=== PATIENT | female | born 1945 | race Caucasian/White ===

== ENCOUNTER → 2019-09-16 | Outpatient (CLI) | payer MEDICARE, OTHER ==
--- NOTE | 2019-09-16 16:22 | Diagnostic Imaging Report ---
PROCEDURE: MRI lumbar spine. TECHNIQUE: Multiplanar, multisequence MRI of the lumbar spine was performed without contrast. INDICATION: Low back pain. No known injury. COMPARISON: None. FINDINGS: 5 lumbar type vertebral bodies are visualized with the last well-formed disc space designated L5-S1. No acute fracture or dislocation is seen in the lumbar spine. There is right convexity curvature of the lumbar spine centered at the L4 level. Vertebral heights and disc spaces are well-maintained. The bone marrow signal is normal. The conus terminates at the L1 level. No masses are seen associated with the conus or nerve roots of the cauda equina. Multilevel degenerative changes are seen in the lumbar spine with disc bulges, facet hypertrophy, and buckling of the ligamentum flavum. T12-L1: Broad-based disc bulge, facet hypertrophy, and buckling of ligamentum flavum result in no significant spinal canal or foraminal stenosis. L1-L2: Broad-based disc bulge, facet hypertrophy, and buckling of ligamentum flavum result in no significant spinal canal narrowing and moderate right and mild left foraminal stenosis. L2-L3: Disc desiccation with broad-based disc bulge, facet hypertrophy, and buckling of ligamentum flavum result in mild spinal canal narrowing and [id number]-cfpboxvx bilateral foraminal stenosis. L3-L4: Disc desiccation with disc osteophyte complex, facet hypertrophy, and buckling of ligamentum flavum result in no significant spinal canal narrowing and zqvabjmt-ec-zgswrl left and mild right foraminal stenosis. L4-L5: Disc desiccation with broad-based disc bulge, facet hypertrophy, and buckling of the ligamentum flavum results in no significant spinal canal narrowing and sgfb-qm-gekidotd right and moderate left foraminal stenosis. L5-S1: Broad-based disc bulge with superimposed right paracentral disc extrusion with cranial migration of extruded disc contents, facet hypertrophy, and buckling of the ligamentum flavum results in severe right lateral recess stenosis, no significant spinal canal narrowing and wxlwfrxu-hz-mtldom right and moderate left foraminal stenosis. Paravertebral soft tissues are unremarkable. IMPRESSION: 1. No acute fracture or dislocation in the lumbar spine. 2. Multilevel degenerative changes in the lumbar spine, greatest at L5-S1 with a right paracentral disc extrusion resulting in severe right lateral recess stenosis and ekfgvhgj-wo-gqooej right and moderate left foraminal stenosis. Dictated by: Dictated on workstation # [id number]
== END ==
LOC: RAD 15:33
PROVIDERS: ATTEND Orthopaedic Surgery
DX: M48.07 Spinal stenosis, lumbosacral region (principal); M47.817 Spondylosis without myelopathy or radiculopathy, lumbosacral region
CPT/HCPCS: 72148

== ENCOUNTER 2020-09-11 12:31 | Emergency (ER) | payer MEDICARE ==
[~2020-09-11] VITALS: Ht 175.3 cm; Wt 81.6 kg
--- NOTE | 2020-09-11 12:44 | ED Dyspnea ---
General Stated Complaint: SOB History of Present Illness Date Seen by Provider: Sep 11, 2020 Time Seen by Provider: 12:39 Initial Comments 75-year-old female presents with some mild chest discomfort and shortness of breath. Patient reports that she was diagnosed with COVID 2 days ago. That she's been feeling fine up until this morning. This morning she had just some mild feeling of shortness of breath and then a little bit of discomfort in her chest is now resolved. Patient reports that she had a little flulike symptoms this morning but otherwise all her symptoms a been a very minimal to none. Patient came in today because she just wanted any further evaluated. Upon arrival patient is oxygen saturation is in the upper 90s. She does not have any shortness of breath at this time. Patient otherwise has no complaints. Allergies and Home Medications Patient Home Medication List Home Medication List Reviewed: Yes Review of Systems Review of Systems Constitutional: No chills, No fever Respiratory: No cough, No dyspnea on exertion, No orthopnea; short of breath Cardiovascular: chest pain; No edema, No palpitations Gastrointestinal: No abdominal pain, No diarrhea, No nausea, No vomiting Genitourinary: no symptoms reported Musculoskeletal: no symptoms reported Skin: no symptoms reported Psychiatric/Neurological: No Symptoms Reported Endocrine: No Symptoms Reported Hematologic/Lymphatic: No Symptoms Reported Physical Exam Vital Signs Vital Signs - First Documented 09/11/20 12:35 Temp 35.1 Pulse 76 Resp 17 B/P (MAP) 179/78 (111) Pulse Ox 97 O2 Delivery Room Air Capillary Refill : Height, Weight, BMI Height: '" Weight: lbs. oz. 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 Norm as Tested Skin: Normal Color, Warm/Dry Progress/Results/Core Measures Results/Orders Lab Results Laboratory Tests Test 09/11/20 12:25 09/11/20 12:55 Range/Units White Blood Count 10.0 4.3-11.0 10^3/uL Red Blood Count 4.20 L 4.35-5.85 10^6/uL Hemoglobin 12.9 11.5-16.0 G/DL Hematocrit 37 35-52 % Mean Corpuscular Volume 89 80-99 FL Mean Corpuscular Hemoglobin 31 25-34 PG Mean Corpuscular Hemoglobin Concent 35 32-36 G/DL Red Cell Distribution Width 14.1 10.0-14.5 % Platelet Count 292 130-400 10^3/uL Mean Platelet Volume 10.5 H 7.4-10.4 FL Immature Granulocyte % (Auto) 0 % Neutrophils (%) (Auto) 72 42-75 % Lymphocytes (%) (Auto) 20 12-44 % Monocytes (%) (Auto) 7 0-12 % Eosinophils (%) (Auto) 0 0-10 % Basophils (%) (Auto) 1 0-10 % Neutrophils # (Auto) 7.2 1.8-7.8 X 10^3 Lymphocytes # (Auto) 2.0 1.0-4.0 X 10^3 Monocytes # (Auto) 0.7 0.0-1.0 X 10^3 Eosinophils # (Auto) 0.0 0.0-0.3 10^3/uL Basophils # (Auto) 0.1 0.0-0.1 10^3/uL Immature Granulocyte # (Auto) 0.0 0.0-0.1 10^3/uL Sodium Level 140 135-145 MMOL/L Potassium Level 3.9 3.6-5.0 MMOL/L Chloride Level 105 98-107 MMOL/L Carbon Dioxide Level 23 21-32 MMOL/L Anion Gap 12 5-14 MMOL/L Blood Urea Nitrogen 14 7-18 MG/DL Creatinine 0.75 0.60-1.30 MG/DL Estimat Glomerular Filtration Rate > 60 BUN/Creatinine Ratio 19 Glucose Level 132 H 70-105 MG/DL Calcium Level 8.7 8.5-10.1 MG/DL Corrected Calcium 8.5 8.5-10.1 MG/DL Total Bilirubin 0.6 0.1-1.0 MG/DL Aspartate Amino Transf (AST/SGOT) 17 5-34 U/L Alanine Aminotransferase (ALT/SGPT) 15 0-55 U/L Alkaline Phosphatase 55 40-136 U/L Troponin I < 0.30 <0.30 NG/ML C-Reactive Protein 2.28 H <0.50 MG/DL Total Protein 6.6 6.4-8.2 GM/DL Albumin 4.2 3.2-4.5 GM/DL My Orders Orders - NATALIE MICHAEL DO Cbc With Automated Diff (09/11/20 12:49) Comprehensive Metabolic Panel (09/11/20 12:49) Crp Fs (09/11/20 12:49) Troponin I Fs (09/11/20 12:49) Chest 1 View Ap/Pa Only (09/11/20 12:49) Ekg Tracing (09/11/20 12:49) Vital Signs/I&O 09/11/20 12:35 Temp 35.1 Pulse 76 Resp 17 B/P (MAP) 179/78 (111) Pulse Ox 97 O2 Delivery Room Air Progress Progress Note : Time: 14:14 Progress Note Patient was asymptomatic throughout her ER stay. She does have known COVID with O2 saturations in the upper 90s. Patient stable and will be discharged home Initial ECG Impression Date: Sep 11, 2020 Initial ECG Impression Time: 12:49 Initial ECG Rate: 72 Initial ECG Rhythm: Normal Sinus Initial ECG Intervals: QT (504) Initial ECG Impression: Nonspecific Changes Comment no acute changes, slight prolonged qt, non specific changes Diagnostic Imaging Diagonstic Imaging: Xray Plain Films/CT/US/NM/MRI: chest Comments [facility], [place] NAME: KELSEY ELIZONDO Hattie [facility] REC#: [id number] PT STATUS: REG ER : 1945 PHYSICIAN: NATALIE MICHAEL DO ADMIT DATE: 09/11/20/ER FS Draft Date of Exam:09/11/20 CHEST 1 VIEW AP/PA ONLY INDICATION: Shortness of breath. TECHNIQUE: Single-view chest 12:51 p.m. CORRELATION STUDY: None. FINDINGS: Heart size and mediastinal configuration are relatively stable. Mildly prominent interstitial markings throughout both lung moya. However, no consolidating infiltrates. Asymmetrically elevated right diaphragm. There may be trace pleural effusion versus pleural thickening in the left costophrenic angle. IMPRESSION: 1. Negative for acute abnormality of the chest. Likely chronic change about the lung parenchyma. Reviewed: Reviewed by Me, Reviewed/Discussed Departure Impression Primary Impression: COVID-19 Disposition: 01 HOME, SELF-CARE Condition: Stable Departure-Patient Inst. Referrals: NO,LOCAL PHYSICIAN (PCP/Family) Primary Care Physician Patient Instructions: Coronavirus Disease 2019 (COVID-19) Overview Add. Discharge Instructions: Please start vitamin C 500 mg twice a day, zinc 100 mg daily, melatonin 6-12 mg at night, vitamin D 4000 units a day, aspirin 325 mg daily, Pepcid 40 mg twice daily Follow-up with your primary care provider as needed Return to the ER if symptoms significantly worsen ANTALIE MICHAEL DO Sep 11, 2020 12:44
[2020-09-11 13:07] LABS: HEMATOCRIT 37 % (35-52); HEMOGLOBIN 12.9 G/DL (11.5-16.0); MEAN CORPUSCULAR HEMOGLOBIN 31 PG (25-34); MEAN CORPUSCULAR HGB CONC 35 G/DL (32-36); MEAN CORPUSCULAR VOLUME 89 FL (80-99); MEAN PLATELET VOLUME 10.5 FL (7.4-10.4); PLATELET COUNT 292 10^3/uL (130-400)
[2020-09-11 13:08] LABS: BASOPHILS # (AUTO) 0.1 10^3/uL (0.0-0.1); BASOPHILS % (AUTO) 1 % (0-10); EOSINOPHILS % (AUTO) 0 % (0-10); LYMPHOCYTES % (AUTO) 20 % (12-44); MONOCYTES # (AUTO) 0.7 X 10^3 (0.0-1.0); MONOCYTES % (AUTO) 7 % (0-12); NEUTROPHILS # (AUTO) 7.2 X 10^3 (1.8-7.8); NEUTROPHILS % (AUTO) 72 % (42-75)
--- NOTE | 2020-09-11 13:19 | Diagnostic Imaging Report ---
INDICATION: Shortness of breath. TECHNIQUE: Single-view chest 12:51 p.m. CORRELATION STUDY: None. FINDINGS: Heart size and mediastinal configuration are relatively stable. Mildly prominent interstitial markings throughout both lung moya. However, no consolidating infiltrates. Asymmetrically elevated right diaphragm. There may be trace pleural effusion versus pleural thickening in the left costophrenic angle. IMPRESSION: 1. Negative for acute abnormality of the chest. Likely chronic change about the lung parenchyma. Dictated by: Dictated on workstation # [id number]
[2020-09-11 14:04] LABS: ALANINE AMINOTRANSFERASE 15 U/L (0-55); ALBUMIN 4.2 GM/DL (3.2-4.5); ALKALINE PHOSPHATASE 55 U/L (40-136); BILIRUBIN,TOTAL 0.6 MG/DL (0.1-1.0); BUN/CREATININE RATIO 19; CALCIUM 8.7 MG/DL (8.5-10.1); CARBON DIOXIDE 23 MMOL/L (21-32); CHLORIDE 105 MMOL/L (98-107); CREATININE SERUM 0.75 MG/DL (0.60-1.30); GFR ESTIMATED > 60; GLUCOSE 132 MG/DL (70-105); POTASSIUM 3.9 MMOL/L (3.6-5.0); SODIUM 140 MMOL/L (135-145); TOTAL PROTEIN 6.6 GM/DL (6.4-8.2)
[2020-09-11 14:33] VITALS: BP 145/85
== END 2020-09-11 14:28 | disposition home or self-care (01) ==
LOC: EDUNIT# 12:31 → ER FS 12:33
DX: U07.1 COVID-19 (principal)
CPT/HCPCS: 36415; 71045; 80053; 84484; 85025; 86141

== ENCOUNTER → 2020-09-14 | Outpatient (CLI) | payer MEDICARE ==
[~2020-09-14] VITALS: Ht 175.3 cm; Wt 81.8 kg
[~2020-09-14] MED LIST: BAMLANIVIMAB 700 MG in NS 200 ML IV ONE; EPINEPHrine INJECTION 1 MG/ML AMP IM PRN; diphenhydrAMINE 50 MG/ML INJ (BENADRYL) IV PRN
[2020-09-14 08:37] VITALS: BP 158/68
[2020-09-14 10:13] VITALS: BP 161/93
== END ==
LOC: INFUSION 08:01
PROVIDERS: ATTEND Student in an Organized Health Care Education/Training Program
DX: U07.1 COVID-19 (principal)

== ENCOUNTER 2020-11-29 15:37 | Emergency (ER) | payer MEDICARE, OTHER ==
[~2020-11-29] VITALS: Ht 177 cm; Wt 82.0 kg
[2020-11-29 15:43] VITALS: BP 191/86
--- NOTE | 2020-11-29 16:01 | ED Lower Extremity ---
General Chief Complaint: Lower Extremity Stated Complaint: FALL,LT FOOT PAIN Source: patient History of Present Illness Date Seen by Provider: Nov 29, 2020 Time Seen by Provider: 15:38 Initial Comments 75 yo female presents with pain, bruising and swelling to left foot after she had fallen through some rotten decking. 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 Her right foot and leg fell through and her left foot and toes bent back where she had to push them back into position. She had this happen just prior to coming to the ED. She had taken 400 mg of Ibuprofen just prior to going to work at the house. She has no head injury and no LOC. She denies other i njuries. She is able to bear weight and walk but it is painful. She rates her pain 6 to 7 out of 10. Onset: just prior to arrival Severity: severe Pain/Injury Location: left foot Method of Injury: fell Modifying Factors: Improves With Immobilization; Worse With Movement; Improves With Rest Allergies and Home Medications Allergies Coded Allergies: No Known Drug Allergies (Unverified , 09/11/20) Home Medications Hydrocodone/Acetaminophen 1 Each Tablet, 1 TAB PO Q6H PRN for PAIN-SEVERE (8-10) Prescribed by: REJI MANLEY on 11/29/20 1640 Patient Home Medication List Home Medication List Reviewed: Yes Review of Systems Constitutional: No chills, No fever EENTM: no symptoms reported Respiratory: no symptoms reported Cardiovascular: no symptoms reported Gastrointestinal: no symptoms reported Genitourinary: no symptoms reported Musculoskeletal: see HPI, other (pain in left foot at MTP joints 2-3) Skin: change in color (bruising to left foot) Psychiatric/Neurological: Denies Headache, Denies Numbness, Denies Paresthesia Past Yiapyhs-Pyjloc-Lmmvhg Hx Past Med/Social Hx: Reviewed Nursing Past Med/Soc Hx Patient Social History 2nd Hand Smoke Exposure: No Recent Hopitalizations: No Seasonal Allergies Seasonal Allergies: No Past Medical History Surgeries: Yes Adenoidectomy, Appendectomy, Hysterectomy, Tonsillectomy, Tubal Ligation Respiratory: No Cardiac: No Neurological: No Genitourinary: No Gastrointestinal: No Musculoskeletal: No Endocrine: No HEENT: No Cancer: No Psychosocial: Yes Depression Integumentary: No Blood Disorders: No Physical Exam Vital Signs Vital Signs - First Documented 11/29/20 15:43 Temp 37.2 Pulse 85 Resp 20 B/P (MAP) 191/86 (121) Pulse Ox 97 Capillary Refill : Height, Weight, BMI Height: '" Weight: lbs. oz. 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, no motor/sensory deficits, alert, normal mood/affect, oriented x 3 Skin: warm/dry, ecchymosis (top of left foot 2-3 MTP joints) Progress/Results/Core Measures Results/Orders My Orders Orders - REJI MANLEY MD Foot 3 View Left (11/29/20 15:55) Ice: Apply To Affected Area (11/29/20 15:55) Elevate Affected Extremity (11/29/20 15:55) Crutches (11/29/20 16:35) Ed Ortho/Other Supplies Order (11/29/20 16:35) Orthopedic Equiment (11/29/20 16:35) Vital Signs/I&O 11/29/20 15:43 Temp 37.2 Pulse 85 Resp 20 B/P (MAP) 191/86 (121) Pulse Ox 97 Progress Progress Note #1: Progress Note since took 400 mg Ibuprofen shortly before the accident will start with ice and elevation for pain and obtain imaging to look for fracture, dislocation Progress Note #2: Progress Note X-rays demonstrate nondisplaced fracture of the distal portion of the second metatarsal. This does correlate with where she has pain, swelling and bruising. Counseled patient on treatment with nonweightbearing, crutches, Ortho shoe. Advised since this was work comp that she would need to follow-up with the work comp clinic or orthopedics. Depending on her HR her and employer she would need to follow-up as they directed. Given information for Dr. Hunter and Elliott Riggs. Patient refused crutches stating that she felt like she would hurt herself more if she tried to use the crutches. She did take the Ortho shoe. Advised on rest, ice, elevation. Prescribed a few pain pills as well as counseled that if just ibuprofen and Tylenol control her pain she can just use that. Advised to be off work until she could be cleared by clinic or orthopedics. Diagnostic Imaging Diagonstic Imaging: Xray Plain Films/CT/US/NM/MRI: other (foot) Comments NAME: KELSEY ELIZONDO [facility] REC#: [id number] PT STATUS: REG ER : 1945 PHYSICIAN: REJI MANLEY MD ADMIT DATE: 11/29/20/ER FS Signed Date of Exam:11/29/20 FOOT 3 VIEW LEFT INDICATION: Left foot pain AP, oblique, lateral views left foot are obtained There is prominent degenerative change of 1st MTP joint. There is diffuse degenerative change throughout the interphalangeal joints. There is some plantar calcaneal spurring There is some cortical lucency and irregularity in the distal aspect of the 2nd metatarsal, it is not clear if this is chronic or acute. Correlate for point tenderness in this area. IMPRESSION: Underlying degenerative findings. Questionable cortical lucency in the 2nd metatarsal distally, this may represent nondisplaced fracture versus chronic change. Correlate for point tenderness in this area. Consider followup as warranted. Dictated by: Dictated on workstation # [id number] Dict: 11/29/20 1609 Trans: 11/29/20 1619 [facility] [id number] Interpreted by: MUSTAPHA ORTEGA MD Electronically signed by: MUSTAPHA ORTEGA MD 11/29/20 1619 Departure Impression Primary Impression: Nondisplaced fracture of second metatarsal bone, left foot, initial encounter for closed fracture Additional Impressions: Left foot pain Fall through floor, initial encounter Disposition: 01 HOME, SELF-CARE Condition: Stable Departure-Patient Inst. Decision time for Depature: 16:41 Referrals: NO,LOCAL PHYSICIAN (PCP) Primary Care Physician DARLING HUNTER MD Patient Instructions: Foot Fracture ED, How to Use Crutches Add. Discharge Instructions: Wear Ortho-shoe to limit movement of your toes and foot. This will help stabilize the fracture of your 2nd metatarsal (The bone behind your 2nd toe on left foot) Non weight bearing on your left foot to help prevent the fracture from moving Follow up with Work Comp doctor or Orthopedics, Dr. Hunter or his nurse practitioner Elliott Riggs depending on what your employer says for where you are to be seen next. You should be seen within 1 week and be off work until you can be seen and cleared. Ice 20-30 minutes every few hours to the foot to help with swelling and bruising. Elevate your foot above waist level to help with swelling and pain. All discharge instructions reviewed with patient and/or family. Voiced understanding. Scripts Hydrocodone/Acetaminophen (Hydrocodone-Acetamin 5-325 mg) 1 Each Tablet 1 TAB PO Q6H PRN for PAIN-SEVERE (8-10) for 3 Days, #12 TAB 0 Refills Prov: REJI MANLEY MD 11/29/20 Images Extremities-Lower 1 - Ecchymosis, Swelling, Tenderness (Tenderness with swelling and ecchymosis over the MTP joint area of the second and third metatarsals) REJI MANLEY MD Nov 29, 2020 16:01
--- NOTE | 2020-11-29 16:15 | Diagnostic Imaging Report ---
INDICATION: Left foot pain AP, oblique, lateral views left foot are obtained There is prominent degenerative change of 1st MTP joint. There is diffuse degenerative change throughout the interphalangeal joints. There is some plantar calcaneal spurring There is some cortical lucency and irregularity in the distal aspect of the 2nd metatarsal, it is not clear if this is chronic or acute. Correlate for point tenderness in this area. IMPRESSION: Underlying degenerative findings. Questionable cortical lucency in the 2nd metatarsal distally, this may represent nondisplaced fracture versus chronic change. Correlate for point tenderness in this area. Consider followup as warranted. Dictated by: Dictated on workstation # [id number]
[2020-11-29] MEDS ORDERED: ACHD5005 PO (16:39)
== END 2020-11-29 16:47 | disposition home or self-care (01) ==
LOC: EDUNIT# 15:37 → ER FS 15:39
DX: S92.325A Nondisplaced fracture of second metatarsal bone, left foot, initial encounter for closed fracture (principal); W13.3XXA Fall through floor, initial encounter
CPT/HCPCS: 73630